=== PATIENT | female | born 1990 | race Caucasian/White ===

== ENCOUNTER 2023-09-02 12:33 | Outpatient (CLI) | payer OTHER ==
--- NOTE | 2023-09-02 13:58 | MRI Report ---
PROCEDURE: LUMBAR SPINE WO INDICATIONS: HIP AND LOW BACK PAIN TECHNIQUE: Noncontrast sagittal T1 spin echo and T2 fast echo, sagittal STIR, axial T1 and T2 fast spin echo thr ough the lumbar spine. In cases with scoliosis, additional coronal T2 fast spin echo may be performe d. COMPARISON: None. FINDINGS: Image quality: Excellent. Alignment and Curvature: There is normal bony alignment. Bone Marrow: Marrow is of normal overall signal. No acute vertebral body compression fractures. Spinal Cord: Conus medullaris terminates at the L1 level. Visualized cord demonstrates normal signa l and size. Paraspinous Soft Tissues: No paravertebral masses. T12-L1: Normal in appearance. L1-L2: Normal in appearance. L2-L3: Normal in appearance. L3-L4: Normal in appearance. L4-L5: Normal in appearance. L5-S1: Normal in appearance. IMPRESSION: Normal lumbar spine. No significant degenerative changes, central canal or neuroforaminal stenosis. Reviewed by: Shun Duncan MD on 09/02/2023 1:56 PM PST Approved by: Shun Duncan MD on 09/02/2023 1:56 PM PST Station ID: [id number]
--- NOTE | 2023-09-02 15:02 | MRI Report ---
PROCEDURE: PELVIS WO INDICATIONS: HIP AND LOW BACK PAIN TECHNIQUE: Noncontrast coronal T1 spin echo and STIR through the bony pelvis. Sagittal T2 FSE with fat saturati on, oblique axial PD FSE and T2 FSE with fat saturation through the symphysis pubis. COMPARISON: None. FINDINGS: Image quality: Excellent. Bones and joints: There is mild marrow edema involving inferior aspect of right sacrum adjacent to sa croiliac joint, low-grade sacroiliitis cannot be excluded. Lytic changes are noted in symphysis pubis with mild adjacent edema. No discrete fracture line is seen. There is no other area of abnormal yana ow signal. No acute fracture or dislocation. No evidence of avascular necrosis of femoral head. Tendons: Mild bilateral distal gluteus medius and minimus tendinosis is seen. The iliopsoas tendon ap pears intact, without adjacent bursal fluid collections. The origin of the hamstring tendons are int act at the ischial tuberosities. Hip joints: Larger field of view images demonstrate no avascular necrosis of the femoral heads. The acetabular labrum appears intact in the absence of intra-articular contrast. Soft tissues: Immediately lateral to the rectus abdominis tendon fibers, the superficial rings of th e inguinal canals demonstrate no hernias. The proximal sciatic neurovascular bundles appear normal a djacent to the hamstring tendons. No free pelvic fluid. Bladder wall thickness is normal. Uterus an d left ovary shows no gross abnormality. Suggestion of a right ovarian cyst measures 1.1 cm in size i s seen. IMPRESSION: 1. Mild marrow edema involving inferior aspect of right sacrum adjacent to sacroiliac joint concernin g for low-grade active sacroiliitis. No ankylosis is seen. No acute fracture or dislocation. No evide nce of avascular necrosis of femoral head. 2. Bilateral distal gluteus medius and minimus tendinosis. 3. No obvious focal labral tear is seen. 4. No gross pelvic soft tissue abnormalities. Possible ovarian cyst as above. 5. 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 Reviewed by: Clement Lacey MD on 09/02/2023 3:01 PM PST Approved by: Clement Lacey MD on 09/02/2023 3:01 PM PST Station ID: [id number]
== END 2023-09-02 12:34 | disposition home or self-care (01) ==
LOC: DI 12:33
PROVIDERS: ATTEND Student in an Organized Health Care Education/Training Program
DX: M54.50 Low back pain, unspecified (principal); R93.7 Abnormal findings on diagnostic imaging of other parts of musculoskeletal system; M67.952 Unspecified disorder of synovium and tendon, left thigh; M67.951 Unspecified disorder of synovium and tendon, right thigh

== ENCOUNTER 2024-04-25 13:24 | Outpatient (CLI) | payer OTHER ==
--- NOTE | 2024-04-26 09:10 | Ultrasound Report ---
LIMITED ULTRASOUND OF RIGHT BREAST: 04/25/2024 CLINICAL: Additional evaluation requested from prior study. Comparison is made to exam dated: 04/25/2024 mammogram - [facility]. Ultrasound of the right breast 9-11 o'clock region was performed. Andre scale images of the real-time examination were reviewed. No significant abnormalities were seen sonographically in the right breast. IMPRESSION: PROBABLY BENIGN There is no abnormality seen in the right breast to correspond with the mammography finding. A follow-up mammogram in 6 months is recommended to demonstrate stability. This exam was interpreted at Station ID: [id number]. Electronically Signed By: Shane Prasad M.D. lc/:04/25/2024 14:44:00 Ultrasound BI-RADS: 3 Probably benign BI-RADS CATEGORY: (3) - 3 Mammogram [id number] 6 month follow-up LATERALITY: (B)
--- NOTE | 2024-04-26 09:10 | Mammography Report ---
BILATERAL DIGITAL DIAGNOSTIC MAMMOGRAM 3D/2D WITH SPOT COMPRESSION: 04/25/2024 CLINICAL: Nipple discharge, left breast, not bloody. Baseline exam. No prior exams were available for comparison. Both breasts are extremely dense, which lowers the sensitivity of mammography (category d />75% gland ular tissue). There is a possible asymmetry in the right breast posterior depth lateral region seen on the cranioca udal view only. No other significant masses, calcifications, or other findings are seen in either breast. IMPRESSION: INCOMPLETE: NEEDS ADDITIONAL IMAGING EVALUATION The possible asymmetry in the right breast is indeterminate. An ultrasound is recommended. There is no abnormality seen in the left breast to correspond with the non-bloody discharge from the nipple and pain in the sub-areolar depth, however, ultrasound is recommended. Based on the Tyrer Cuzick model (a risk assessment model) the patient's lifetime risk is 14.4% and he r 10 year risk is 0.9%. According to the ACR, ACS, and NCCN guidelines, an annual breast MRI exam josesito ng with mammogram is recommended if the patient's lifetime risk is 20% or greater. This exam was interpreted at Station ID: [id number]. NOTE: For mammograms, a report in lay terms will be sent to the patient. Approximately 15% of breast malignancies will not be visualized mammographically. In the management of a palpable breast mass, a negative mammogram must not discourage biopsy of a clinically suspicious lesion. Electronically Signed By: Shane Prasad M.D. lc/:04/25/2024 14:43:07 ACR BI-RADS Category 0: Incomplete 3340F PARENCHYMAL PATTERN: (VD) - The breast(s) demonstrate(s) extremely dense parenchyma, limiting the sen sitivity of mammography. BI-RADS CATEGORY: (0) - 0 Ultrasound [id number] Immediate follow-up LATERALITY: (B)
--- NOTE | 2024-04-26 09:10 | Ultrasound Report ---
LIMITED ULTRASOUND OF LEFT BREAST: 04/25/2024 CLINICAL: Nipple discharge, left breast, not bloody. Comparison is made to exam dated: 04/25/2024 mammogram - [facility]. Color flow ultrasound of the left breast retroareolar was performed. Andre scale images of the real- time examination were reviewed. No significant abnormalities were seen sonographically in the left breast. IMPRESSION: NEGATIVE There is no sonographic evidence of malignancy. There is no abnormality seen in the left breast to correspond with the non-bloody discharge from the nipple and pain in the sub-areolar depth, however, clinical correlation and clinical followup are rec ommended. This exam was interpreted at Station ID: [id number]. Electronically Signed By: Shane Prasad M.D. lc/:04/25/2024 14:44:31 letter sent: No_Letter Ultrasound BI-RADS: 1 Negative BI-RADS CATEGORY: (1) - 1 Unspecified - other recall n/a LATERALITY: (B)
== END 2024-04-25 13:25 | disposition home or self-care (01) ==
LOC: DI 13:24
DX: N64.52 Nipple discharge (principal); N64.4 Mastodynia; R92.343 Mammographic extreme density, bilateral breasts